=== PATIENT | female | born 1945 | race Caucasian/White ===

== ENCOUNTER 2017-06-24 12:10 | Emergency (ER) | payer MEDICARE ==
[~2017-06-24 12:10] MED LIST: ALEN1TAB48 PO; ATOR40TA16 PO; ESTR42.5V VAGINAL; PNEU13P IM; RANI150T PO
[2017-06-24 12:12] VITALS: BP 161/67; PULSE 80; RESP 18; TEMP 98; O2SAT 96
[2017-06-24] MEDS ORDERED: SODIUM CHLORIDE 0.9% FLUSH 10 ML FLUSH IVF PRN (13:15)
--- NOTE | 2017-06-24 13:21 | RADRPT ---
EXAM DATE/TIME: 06/24/2017 12:59 [facility] COMPARISON: No previous studies available for comparison. INDICATIONS : Cough and cold symptoms x3 weeks. MEDICAL HISTORY : None. SURGICAL HISTORY : None. ENCOUNTER: Initial ACUITY: 3 weeks PAIN SCORE: 0/10 LOCATION: Bilateral chest FINDINGS: PA and lateral views of the chest demonstrate minimal density in the lingula. Calcified granuloma rig ht midlung. The cardiomediastinal contours are unremarkable. Osseous structures are intact. CONCLUSION: Minimal lingular infiltrate. Bradly Ferrer MD on June 24, 2017 at 13:18 Board Certified Radiologist. This report was verified electronically.
[2017-06-24] MEDS ORDERED: LEVA750T9 PO (14:22)
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
[2017-06-24] MEDS ORDERED: LEVOFLOXACIN 750 MG TAB PO ONE (14:30)
== END 2017-06-24 15:07 | disposition home or self-care (01) ==
LOC: NEPD 12:10
DX: J18.9 Pneumonia, unspecified organism (principal); E78.00 Pure hypercholesterolemia, unspecified
CPT/HCPCS: 71020; 99285

== ENCOUNTER 2017-10-02 12:14 | Emergency (ER) | payer MEDICARE ==
[~2017-10-02] VITALS: Ht 165.1 cm; Wt 54.6 kg
[~2017-10-02 12:14] MED LIST changes: -PNEU13P IM
[2017-10-02 12:31] VITALS: BP 160/72; PULSE 76; RESP 20; TEMP 98.4; O2SAT 98
[2017-10-02] MEDS ORDERED: ASPI-183 PO (13:54)
[2017-10-02] MEDS ORDERED: SODIUM CHLORIDE 0.9% FLUSH 10 ML FLUSH IVF PRN (14:15)
[2017-10-02 14:44] LABS: AUTOMATED NEUTROPHIL # 4.2 TH/MM3 (1.8-7.7); BASOPHIL # 0.1 TH/MM3 (0-0.2); BASOPHIL % 1.6 % (0.0-2.0); EOSINOPHIL # 0.4 TH/MM3 (0-0.4); EOSINOPHIL % 6.2 % (0.0-4.0); HEMATOCRIT 40.6 % (35.0-46.0); HEMOGLOBIN 13.4 GM/DL (11.6-15.3); LYMPH % 19.4 % (9.0-44.0); LYMPHOCYTE # 1.2 TH/MM3 (1.0-4.8); MEAN CELL VOLUME 93.6 FL (80.0-100.0); MEAN CORPUSCULAR HGB CONC 33.2 % (32.0-36.0); MEAN PLATELET VOLUME 8.3 FL (7.0-11.0); MONO % 5.9 % (0.0-8.0); MONOCYTE # 0.4 TH/MM3 (0-0.9); NEUT % 66.9 % (16.0-70.0); PLATELET COUNT 201 TH/MM3 (150-450); RED BLOOD COUNT 4.33 MIL/MM3 (4.00-5.30); WHITE BLOOD COUNT 6.3 TH/MM3 (4.0-11.0)
[2017-10-02 14:45] VITALS: BP 152/70; PULSE 70; RESP 18; O2SAT 98
[2017-10-02 14:46] VITALS: RESP 18; O2SAT 98
[2017-10-02 14:47] LABS: BILIRUBIN, URINE NEG (NEG); BLOOD, URINE NEG (NEG); GLUCOSE,URINE NEG (NEG); KETONE, URINE NEG (NEG); NITRITE,URINE NEG (NEG); URINE COLOR YELLOW (YELLW/STRAW); URINE LEUKOCYTE ESTERASE NEG (NEG)
[2017-10-02 14:51] LABS: SQUAMOUS EPITHELIAL CELL URINE 0-5 /hpf (0-5)
[2017-10-02 14:55] LABS: CALCIUM 9.2 MG/DL (8.5-10.1)
[2017-10-02 14:56] LABS: BICARBONATE 29.2 MEQ/L (21.0-32.0)
[2017-10-02 14:59] LABS: CREATININE 0.77 MG/DL (0.50-1.00)
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
--- NOTE | 2017-10-02 15:26 | RADRPT ---
EXAM DATE/TIME: 10/02/2017 14:35 [facility] COMPARISON: CHEST PA & LAT, June 24, 2017, 12:59. INDICATIONS : Short of breath MEDICAL HISTORY : None. SURGICAL HISTORY : None. ENCOUNTER: Initial ACUITY: 2 days PAIN SCORE: 0/10 LOCATION: Bilateral chest FINDINGS: No new focal pleural or parenchymal opacities. Lungs are hyperexpanded with small calcified granuloma in the right midlung. Cardiomediastinal contours are within normal limits. Bony thorax is intact. CONCLUSION: 1. No acute abnormality or significant interval change. Dm Ardon MD on October 02, 2017 at 15:23 Board Certified Radiologist. This report was verified electronically.
[2017-10-02 16:28] VITALS: BP 142/72; PULSE 64; RESP 18; O2SAT 100
--- NOTE | 2017-10-02 16:43 | EKG ---
Date Performed: 10/02/2017 Time Performed: 14:21:31 PTAGE: 72 years EKG: Sinus rhythm NORMAL ECG No significant change from prior electrocardiogram. PREVIOUS TRACING : 03/06/2010 07.47 DOCTOR: Prasanth Lopez Interpretating Date/Time 10/02/2017 16:42:06
[2017-10-02 17:13] VITALS: BP 170/90
[2017-10-02 17:28] LABS: MONOSCREEN NEG (NEG)
== END 2017-10-02 17:19 | disposition home or self-care (01) ==
LOC: PHED 12:14
DX: R53.83 Other fatigue (principal); T78.40XA Allergy, unspecified, initial encounter; M19.90 Unspecified osteoarthritis, unspecified site; E78.00 Pure hypercholesterolemia, unspecified; Z85.828 Personal history of other malignant neoplasm of skin; Z88.2 Allergy status to sulfonamides; Z79.82 Long term (current) use of aspirin; Z79.899 Other long term (current) drug therapy
CPT/HCPCS: 71045; 80048; 81001; 84484; 85025; 86308; 87804; 93005; 99285

== ENCOUNTER 2018-04-06 09:37 | Observation (INO) ==
--- NOTE | 2018-04-06 10:24 | XR ---
EXAM DATE: 04/06/2018 10:18 AM EDT AGE/SEX: 72 years / Female INDICATIONS: Fatigue, and weakness. CLINICAL DATA: This is the patient's initial encounter. Patient reports that signs and symptoms have been present for 3 weeks and indicates a pain score of 0/10. MEDICAL/SURGICAL HISTORY: None. None. COMPARISON: [facility], CHEST SINGLE AP, 10/02/2017. . FINDINGS: Granuloma right midlung. Very minimal parenchymal changes left base that could be early inflammatory process. The heart and pulmonary vascularity are normal. The portion of the bony skeleton visualized is unremarkable. . CONCLUSION: Minimal parenchymal changes left base. Electronically signed by: Josiah Dobbins MD 04/06/2018 10:23 AM EDT
[2018-04-06 10:37] LABS: Baso % (Auto) 0.6 % (0.0-2.0); Eos # (Auto) 0.2 th/mm3 (0.0-0.4); Eos % (Auto) 2.7 % (0.0-4.0); Hematocrit 37.9 % (35.0-46.0); Hemoglobin 13.4 gm/dL (11.6-15.3); Lymph # (Auto) 1.1 th/mm3 (1.0-4.8); Lymph % (Auto) 18.8 % (9.0-44.0); Mean Corpuscular HGB Conc 35.3 % (32.0-36.0); Mean Corpuscular Volume 93.5 fL (80.0-100.0); Mean Platelet Volume 8.4 fL (7.0-11.0); Mono # (Auto) 0.4 th/mm3 (0.0-0.9); Mono % (Auto) 6.4 % (0.0-8.0); Neut # (Auto) 4.3 th/mm3 (1.8-7.7); Neut % (Auto) 71.5 % (16.0-70.0); Platelet Count 192 th/mm3 (150-450); Red Blood Count 4.06 mil/mm3 (4.00-5.30); Red Cell Distribution Width 12.2 % (11.6-17.2); White Blood Count 5.9 th/mm3 (4.0-11.0)
--- NOTE | 2018-04-06 10:48 | CT ---
EXAM DATE: 04/06/2018 10:41 AM EDT AGE/SEX: 72 years / Female INDICATIONS: Altered mental status, general weakness and facial numbness today. CLINICAL DATA: This is the patient's initial encounter. Patient reports that signs and symptoms have been present for 1 day and indicates a pain score of 0/10. MEDICAL/SURGICAL HISTORY: None. Tonsillectomy. RADIATION DOSE: 56.35 CTDI (mGy) COMPARISON: [facility] [place], CT BRAIN W/O CONTRAST, 03/10/2015. . TECHNIQUE: CT of the head without contrast. Using automated exposure control and adjustment of the mA and/or kV according to patient size, radiation dose was kept as low as reasonably achievable to ob tain optimal diagnostic quality images. DICOM format image data is available electronically for revi ew and comparison. FINDINGS: Cerebrum: The ventricles are normal for age. No evidence of midline shift, mass lesion, hemorrhage or acute infarction. No extraaxial fluid collections are seen. Posterior Fossa: The cerebellum and brainstem are intact. The 4th ventricle is midline. The cerebe llopontine angle is unremarkable. Extracranial: The visualized portion of the orbits is intact. Skull: The calvaria is intact. No evidence of skull fracture. CONCLUSION: 1. Negative for acute process . Electronically signed by: Josiah Dobbins MD 04/06/2018 10:47 AM EDT
[2018-04-06 11:12] LABS: Alkaline Phosphatase 116 U/L (45-117); Total Protein 7.4 g/dL (6.4-8.2)
[2018-04-06 11:21] LABS: Alanine Aminotransferase 36 U/L (10-53); Albumin 3.9 g/dL (3.4-5.0); Anion Gap 0 meq/L (5-15); Aspartate Aminotransferase 36 U/L (15-37); Blood Urea Nitrogen 18 mg/dL (7-18); Calcium 8.7 mg/dL (8.5-10.1); Carbon Dioxide 30.7 meq/L (21.0-32.0); Chloride 104 meq/L (98-107); Glomerular Filtration Rate 60 mL/min (>89); Glucose,Random 132 mg/dL (74-106); Potassium 4.2 meq/L (3.5-5.1); Sodium 135 meq/L (136-145)
--- NOTE | 2018-04-06 14:15 | P.HPFP ---
History of Present Illness Primary Care Physician: Major Murillo MD, R3 Chief Complaint: numbness and tingling History of Present Illness: 72 year old female PMH chronic fatigue, osteoporosis, hiatal hernia, HLD who presented with chest tightness, resolved numbness/tingling of face and difficulty with speech. 2 weeks she has been having increasing fatigue and some chest tightness. It has been worse the last 3-4 days. The chest tightness is at rest but is worse when she is doing activity. It is not associated with eating. She denies any diaphoresis. She said when she woke up this morning to get ready for adventist she had numbness and tingling that was in her neck and radiated to her face. When she was in the shower she had difficulty remembering if she washed her face or not and when she got out of the shower clinic remember her usual bathroom routine. She had water in a smoothie this morning and her appetite has been normal throughout the past couple weeks. She said her legs felt weak. She decided to come to the emergency room. In the emergency room she felt like she had difficulty finding the correct words when she was asked about her medical history. She says that she has been feeling like she is in a fog and lightheaded. She has had increased urination but that has been a chronic issue for years dealing with her back discs. She has had some nausea and shortness of breath with activity. She denied headache, vision change, dizziness, painful urination. She lives in an apartment by herself at [facility] independent living facility. She sees a concierge who has her do a carotid Doppler alternating with a cardiac echo every 6 months. She has been told she has leaky valves. Her concierge is Dr. Ochoa. She was seen in the past week by her PCP Dr. Murillo who did not find anything abnormal. - Diagnosis (1) Chest pain (2) Numbness and tingling (3) Hiatal hernia (4) HLD (hyperlipidemia) (5) Osteoporosis (6) Nutrition, metabolism, and development symptoms Review of Systems Constitutional: Reports fatigue, Reports weakness, Denies chills, Denies fever(s ) Eyes: Denies change in vision Cardiovascular: Reports chest pain, Reports chest pain at rest, Reports chest pain with activity, Reports shortness of breath with activity, Denies rapid, pounding, or irregular heartbeat Respiratory: Reports shortness of breath with activity, Denies cough Gastrointestinal: Reports nausea, Denies constipation, Denies loose stools, Denies vomiting Genitourinary: Reports urinary urgency, Denies painful urination Musculoskeletal: Reports muscle weakness, Reports numbness, Reports tingling Skin/Breast: Denies rash Neurologic: Reports confusion, Reports numbness, Reports tingling, Reports weakness, Denies headache(s) Endocrine: Denies excessive sweating PMFSH - History History Provided By: Patient - Medical History Medical History: Medical History (Last Updated 04/06/18 @ 15:28 by Eryn Sloan MD, R1) Chronic fatigue Hiatal hernia Hyperlipemia Tibia fracture - Surgical History Surgical History: Surgical History (Last Updated 04/06/18 @ 15:28 by Eryn Sloan MD, R1) H/O total hysterectomy Hx of cholecystectomy Hx of tonsillectomy - Family History Family History: Family History (Last Updated 04/06/18 @ 15:30 by Eryn Sloan MD, R1) Mother Cardiovascular disease Father Heart attack - Tobacco History Smoking Status: Never smoker - Alcohol History How Often Do You Have a Drink Containing Alcohol: Never - Substance Use History Substance History: No History of Abuse - Travel History Recent Travel in the [place] Within the Last 8 Weeks: No Recent Travel Out of the Country Within the Last 8 Weeks: No - Immunization History Tetanus Immunization: >5 Years Hx Influenza Vaccine This Season: No Medications and Allergies Active Medications: Active Medications Sodium Chloride (Ns Flush) 2 ml IV.FLUSH UNSCH PRN PRN Reason: FLUSH AFTER USING IV ACCESS Allergies Allergy/AdvReac Type Severity Reaction Status Date / Time Sulfa (Sulfonamide Allergy Severe Unverified 10/02/17 12:32 Antibiotics) Home Medications Medication Instructions Recorded Confirmed Type alendronate 70 mg PO QWEEK 04/06/18 04/06/18 History aspirin 325 mg PO DAILY 04/06/18 04/06/18 History atorvastatin 20 mg PO DAILY 04/06/18 04/06/18 History estradiol [Estrace] 1 g VAGINAL 3XW 04/06/18 04/06/18 History Exam Vital signs: Vital Signs 04/06/18 09:42 04/06/18 10:02 04/06/18 10:03 Temperature 97.9 F Pulse Rate 81 77 81 Respiratory Rate 23 18 Blood Pressure 154/89 H 183/95 H Pulse Oximetry 97 100 100 04/06/18 12:37 Temperature Pulse Rate 76 Respiratory Rate 18 Blood Pressure 148/71 H Pulse Oximetry 99 Intake & Output 04/05/18 04/06/18 04/06/18 18:59 06:59 18:59 Weight 53.524 kg Narrative: GENERAL: SKIN: Warm and dry. HEAD: Atraumatic. Normocephalic. EYES: Pupils equal and round. No scleral icterus. No injection or drainage. ENT: No nasal bleeding or discharge. Mucous membranes pink and moist. NECK: Trachea midline. No JVD. CARDIOVASCULAR: Regular rate and rhythm. No murmurs. No carotid bruits RESPIRATORY: No accessory muscle use. Clear to auscultation. Breath sounds equal bilaterally. GASTROINTESTINAL: Abdomen soft, some epigastric tenderness, nondistended. Hepatic and splenic margins not palpable. MUSCULOSKELETAL: Extremities without clubbing, cyanosis, or edema. No obvious deformities. Some tenderness to palpation of sternum. NO CVA tenderness NEUROLOGICAL: Awake and alert. No obvious cranial nerve deficits. Motor grossly within normal limits. Five out of 5 muscle strength in the arms and legs. Normal speech. CN 2-12 intact. Cerebellar finger to nose wnL. PSYCHIATRIC: Appropriate mood and affect; insight and judgment normal. Results - Labs Result diagrams: 04/06/18 10:05 04/06/18 10:05 Abnormal lab results 04/06/18 04/06/18 Range/Units 10:05 10:05 Neut % (Auto) 71.5 H (16.0-70.0) % Sodium 135 L (136-145) meq/L Anion Gap 0 L (5-15) meq/L Estimated GFR 60 L (>89) mL/min Random Glucose 132 H (74-106) mg/dL Troponin I Less than 0.02 L (0.02-0.05) ng/mL Short CBC 04/06/18 Range/Units 10:05 WBC 5.9 (4.0-11.0) th/mm3 Hgb 13.4 (11.6-15.3) gm/dL Hct 37.9 (35.0-46.0) % Plt Count 192 (150-450) th/mm3 BMP 04/06/18 10:05 Sodium 135 L Potassium 4.2 Chloride 104 Carbon Dioxide 30.7 BUN 18 Creatinine 0.92 Calcium 8.7 Cardiac Enzymes 04/06/18 Range/Units 10:05 Troponin I Less than 0.02 L (0.02-0.05) ng/mL Liver Function 04/06/18 Range/Units 10:05 Total Bilirubin 0.5 (0.2-1.0) mg/dL AST 36 (15-37) U/L ALT 36 (10-53) U/L Alkaline Phosphatase 116 (45-117) U/L Albumin 3.9 (3.4-5.0) g/dL - Imaging Impressions Chest X-Ray 04/06/18 10:00 CONCLUSION: Minimal parenchymal changes left base. Head CT 04/06/18 10:00 CONCLUSION: 1. Negative for acute process . Caprini VTE Risk Assessment Caprini VTE Risk Assessment: Moderate/High Risk (score >= 2) Caprini Risk Assessment Model: Point Value = 1 Point Value = 2 Point Value = 3 Point Value = 5 Age 41-60 Minor surgery BMI > 25 kg/m2 Swollen legs Varicose veins or History of unexplained or recurrent spontaneous Oral contraceptives or hormone replacement Sepsis (< 1 month) Serious lung disease, including pneumonia (< 1 month) Abnormal pulmonary function Acute myocardial infarction Congestive heart failure (< 1 month) History of inflammatory bowel disease Medical patient at bed rest Age 61-74 Arthroscopic surgery Major open surgery (> 45 min) Laparoscopic surgery (> 45 min) Malignancy Confined to bed (> 72 hours) Immobilizing plaster cast Central venous access Age >= 75 History of VTE Family history of VTE Factor V Leiden Prothrombin [id number] Lupus anticoagulant Anticardiolipin antibodies Elevated serum homocysteine Heparin-induced thrombocytopenia Other congenital or acquired thrombophilia Stroke (< 1 month) Elective arthroplasty Hip, pelvis, or leg fracture Acute spinal cord injury (< 1 month) Prophylaxis Regimen: Total Risk Factor Score Risk Level Prophylaxis Regimen 0-1 Low Early ambulation 2 Moderate Order ONE of the following: *Sequential Compression Device (SCD) *Heparin 5000 units SQ BID 3-4 Higher Order ONE of the following medications: *Heparin 5000 units SQ TID *Enoxaparin/Lovenox 40 mg SQ daily (WT < 150 kg, CrCl > 30 mL/min) *Enoxaparin/Lovenox 30 mg SQ daily (WT < 150 kg, CrCl > 10-29 mL/min) *Enoxaparin/Lovenox 30 mg SQ BID (WT < 150 kg, CrCl > 30 mL/min) AND/OR *Sequential Compression Device (SCD) 5 or more Highest Order ONE of the following medications: *Heparin 5000 units SQ TID (Preferred with Epidurals) *Enoxaparin/Lovenox 40 mg SQ daily (WT < 150 kg, CrCl > 30 mL/min) *Enoxaparin/Lovenox 30 mg SQ daily (WT < 150 kg, CrCl > 10-29 mL/min) *Enoxaparin/Lovenox 30 mg SQ BID (WT < 150 kg, CrCl > 30 mL/min) AND *Sequential Compression Device (SCD) Assessment and Plan - Assessment (1) Chest pain Code(s): R07.9 - Chest pain, unspecified Status: Acute Plan: Troponin X2 <0.02. Chest X-ray: Minimal parenchymal changes left base. Sinus rhythm with sinus arrhythmia no ST elevation. No significant change to EKG in September 2017. Ddx costochondritis, ACS, GERD. given PE tender to palpation of sternum and epigastric region and chronic history of the chest tightness, less likely ACS. -Admit to observation -Trend troponin and EKG -Cardiac telemetry (2) Numbness and tingling Code(s): R20.0 - Anesthesia of skin; R20.2 - Paresthesia of skin Status: Acute Plan: Ddx stroke, TIA, electrolyte/metabolic. Currently resolved. CT showed no acute changes. BMP and CBC within normal limits. Troponin X2 <0.02. Chest X-ray: Minimal parenchymal changes left base.Sinus rhythm with sinus arrhythmia no ST elevation. No significant change to EKG in September 2017. -trend troponin and EKG -cardiac telemetry -Carotid Doppler -Cardiac echo -Bedside swallow before diet -UA -PT/OT -MRI/MRA head -A1c -Home ASA 325 (3) Hiatal hernia Code(s): K44.9 - Diaphragmatic hernia without obstruction or gangrene Status: Acute (4) HLD (hyperlipidemia) Code(s): E78.5 - Hyperlipidemia, unspecified Status: Acute Plan: -home atorvastatin 20mg -lipid profile (5) Osteoporosis Code(s): M81.0 - Age-related osteoporosis without current pathological fracture Status: Acute Plan: On alendronate but doing intermittent therapy and not scheduled to restart until July. (6) Nutrition, metabolism, and development symptoms Code(s): R63.8 - Other symptoms and signs concerning food and fluid intake Status: Acute Plan: Diet: regular once passes swallow study Electrolytes: Replete as needed DVT Prophylaxis:Lovenox - Assessment and Plan 72 year old female PMH chronic fatigue, osteoporosis, hiatal hernia, HLD who presented with chest tightness, resolved numbness/tingling of face and difficulty with speech. CT showed no acute changes. BMP and CBC within normal limits. Troponin X2 <0.02. Chest X-ray: Minimal parenchymal changes left base.Sinus rhythm with sinus arrhythmia no ST elevation. No significant change to EKG in September 2017. BP on admission 149/71 and heart rate 76. Neurological physical exam no deficits and overall exam normal besides some sternal and epigastric tenderness. Ddx of chest tightness costochondritis, ACS, GERD. given PE tender to palpation of sternum and epigastric region and chronic history of the chest tightness, less likely ACS. Ddx stroke, TIA, electrolyte/metabolic. Ordered Echo, carotid doppler, MRI/MRA head, UA, PT/OT as well as trending troponin, EKG, and Cardiac Telemetry. Code: DNR Discharge disposition: unknown Discharge: Home
--- NOTE | 2018-04-06 14:21 | ED ---
HPI General Chief complaint: Neuro Symptoms/Deficit Stated complaint: Medical Time Seen by Provider: 04/06/18 10:00 History of Present Illness HPI narrative: Patient is a 72-year-old female presents emergency department for evaluation of 2 weeks worth of chest tightness, about 8:00 this morning the patient had sudden onset of some confusion and difficulty finding words as well as some left-sided facial numbness. Patient states is not happened to her before. States he has a history of coronary artery disease and stenosis in her neck. She states is been many years since she has had a cardiac catheterization circa 2004. She has not had a stress test since then. She is quite concerned that something significant is happened to her. Currently her symptoms are fairly mild, patient numbness is resolving, she is not having any difficulty with speech currently. Related Data Home Medications Medication Instructions Recorded Confirmed alendronate 70 mg PO QWEEK 04/06/18 04/06/18 aspirin 325 mg PO DAILY 04/06/18 04/06/18 atorvastatin 20 mg PO DAILY 04/06/18 04/06/18 estradiol [Estrace] 1 g VAGINAL 3XW 04/06/18 04/06/18 lisinopril 5 mg PO DAILY 04/06/18 04/06/18 omeprazole 20 mg PO DAILY 04/06/18 04/06/18 Allergies Allergy/AdvReac Type Severity Reaction Status Date / Time Sulfa (Sulfonamide Allergy Severe Unverified 10/02/17 12:32 Antibiotics) Review of Systems ROS: all other systems reviewed are negative [facility] Medical History Medical History Hiatal hernia (Acute) Hyperlipemia (Acute) Tibia fracture (Acute) Surgical History Surgical History Hx of cholecystectomy (Acute) Hx of tonsillectomy (Acute) Social History Social History Substance History: No History of Abuse Smoking Status: Never smoker How Often Do You Have a Drink Containing Alcohol: Never Recent Travel in [facility] within the Last 8 Weeks: No Recent Out of Country Travel within the Last 8 Weeks: No Immunization History Tetanus Immunization: >5 Years Hx Influenza Vaccine This Season: No Exam Narrative Exam Narrative: GENERAL: Well-developed well-nourished in no obvious distress however somewhat anxious. SKIN: Focused skin assessment warm/dry. HEAD: Atraumatic. Normocephalic. EYES: Pupils equal and round. No scleral icterus. No injection or drainage. ENT: No nasal bleeding or discharge. Mucous membranes pink and moist. NECK: Trachea midline. No JVD. CARDIOVASCULAR: Regular rate and rhythm. No murmur appreciated. 2+ [place] pulses in all 4 extremity's, no murmurs gallops or rubs, no carotid bruits. RESPIRATORY: No accessory muscle use. Clear to auscultation. Breath sounds equal bilaterally. GASTROINTESTINAL: Abdomen soft, non-tender, nondistended. Hepatic and splenic margins not palpable. MUSCULOSKELETAL: No obvious deformities. No clubbing. No cyanosis. No edema. NEUROLOGICAL: Awake and alert and oriented, cranial nerves II through XII grossly intact and nonfocal, 5 out of 5 strength in all 4 extremities, cerebellar testing negative, normal speech. PSYCHIATRIC: Appropriate mood and affect; insight and judgment normal. Course Initial Documented Vital Signs Temperature 97.9 F 04/06/18 09:42 Pulse Rate 81 04/06/18 09:42 Respiratory Rate 23 04/06/18 09:42 Blood Pressure 154/89 H 04/06/18 09:42 Pulse Oximetry 97 04/06/18 09:42 Last Documented Vital Signs Temperature 97.9 F 04/06/18 09:42 Pulse Rate 76 04/06/18 12:37 Respiratory Rate 18 04/06/18 12:37 Blood Pressure 148/71 H 04/06/18 12:37 Pulse Oximetry 99 04/06/18 12:37 Medical Decision Making MDM Narrative Medical decision making narrative: Patient room to the emergency department, EKG negative, chest x-ray negative, CT head negative, troponin negative as well. Patient is neurologically nonfocal currently. She is fairly vague as to isolate the symptoms as cardiac or neurologic in origin. 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 I have agreed for observation. Medical Screen Exam Complete: Yes Emergency Medical Condition: Yes Differential Diagnosis Differential Diagnosis: ACS, CA, anxiety, reflux, esophageal spasm, TIA possible. Lab Data Result diagrams: 04/06/18 10:05 04/06/18 10:05 Lab Results 04/06/18 04/06/18 Range/Units 10:05 10:05 WBC 5.9 (4.0-11.0) th/mm3 RBC 4.06 (4.00-5.30) mil/mm3 Hgb 13.4 (11.6-15.3) gm/dL Hct 37.9 (35.0-46.0) % MCV 93.5 (80.0-100.0) fL MCH 33.0 (27.0-34.0) pg MCHC 35.3 (32.0-36.0) % RDW 12.2 (11.6-17.2) % Plt Count 192 (150-450) th/mm3 MPV 8.4 (7.0-11.0) fL Neut % (Auto) 71.5 H (16.0-70.0) % Lymph % (Auto) 18.8 (9.0-44.0) % [place] % (Auto) 6.4 (0.0-8.0) % Eos % (Auto) 2.7 (0.0-4.0) % Baso % (Auto) 0.6 (0.0-2.0) % Neut # (Auto) 4.3 (1.8-7.7) th/mm3 Lymph # (Auto) 1.1 (1.0-4.8) th/mm3 [place] # (Auto) 0.4 (0.0-0.9) th/mm3 Eos # (Auto) 0.2 (0.0-0.4) th/mm3 Baso # (Auto) 0.0 (0.0-0.2) th/mm3 WBC Differential . Differential Comment Auto diff final Sodium 135 L (136-145) meq/L Potassium 4.2 (3.5-5.1) meq/L Chloride 104 (98-107) meq/L Carbon Dioxide 30.7 (21.0-32.0) meq/L Anion Gap 0 L (5-15) meq/L BUN 18 (7-18) mg/dL Creatinine 0.92 (0.50-1.00) mg/dL Estimated GFR 60 L (>89) mL/min Random Glucose 132 H (74-106) mg/dL Calcium 8.7 (8.5-10.1) mg/dL Total Bilirubin 0.5 (0.2-1.0) mg/dL AST 36 (15-37) U/L ALT 36 (10-53) U/L Alkaline Phosphatase 116 (45-117) U/L Troponin I Less than 0.02 L (0.02-0.05) ng/mL Total Protein 7.4 (6.4-8.2) g/dL Albumin 3.9 (3.4-5.0) g/dL Imaging Data Radiologist's impression: Chest X-Ray 04/06/18 10:00 CONCLUSION: Minimal parenchymal changes left base. Head CT 04/06/18 10:00 CONCLUSION: 1. Negative for acute process . Discharge Plan Physicians Team ED Provider: Benjamín Villalba Primary Care Provider: Major Murillo Rxs /Orders / Referrals /Forms Prescriptions: No Action atorvastatin 20 mg Tablet 20 mg PO DAILY RF: 0 aspirin 325 mg Tablet 325 mg PO DAILY RF: 0 alendronate 70 mg Tablet 70 mg PO QWEEK RF: 0 lisinopril 5 mg Tablet 5 mg PO DAILY RF: 0 estradiol [Estrace] 0.01 % (0.1 mg/gram) Cream 1 g VAGINAL 3XW RF: 0 omeprazole 20 mg Tablet,Delayed Release (Dr/Ec) 20 mg PO DAILY RF: 0 Discharge Interventions Interventions: Vital Signs Last Done: 04/06/18 10:02 Status ED Status: Admitted Observation Patient
[2018-04-06] MEDS ORDERED: Enoxaparin Inj 40 MG/0.4 ML Syringe SQ SCH (15:00)
[2018-04-06 16:43] LABS: Bacteria,Urine Occasional /hpf; Bilirubin,Urine Negative (Negative); Clarity,Urine Hazy (Clear); Color,Urine Straw (Yellw/Straw); Glucose,Urine (UA) Negative (Negative); Leukocyte Esterase,Urine Negative (Negative); Nitrite,Urine Negative (Negative); Specific Gravity,Urine 1.003 (1.002-1.035); Squamous Epithelial Cell,Urine 2 /hpf (0-5)
--- NOTE | 2018-04-06 17:01 | US ---
EXAM DATE: 04/06/2018 4:55 PM EDT AGE/SEX: 72 years / Female INDICATIONS: Transient ischemic attack. CLINICAL DATA: This is the patient's initial encounter. Patient reports that signs and symptoms have been present for 1 day and indicates a pain score of 0/10. MEDICAL/SURGICAL HISTORY: Hiatal hernia. Hyperlipidemia. Tibia fracture. Chronic fatigue. Tons illectomy. Cholecystectomy. Hysterectomy. COMPARISON: No prior exams available for comparison. VELOCITY PARAMETERS: ICA/CCA Ratio: Right 1.3 , Left 1.3 ICA: Right 78 cm/sec, Left 77 cm/sec CCA: Right 61 cm/sec, Left 57 cm/sec ECA: Right 49 cm/sec, Left 101 cm/sec Vertebral: Right 50 cm/sec antegrade, Left 52 cm/sec antegrade FINDINGS: Antegrade flow is seen in both vertebral arteries. There is mild atherosclerotic plaquing at the origin of both ICAs without any significant stenosis. Elevated flow velocities and ICA/CCA ratios have been found to correlate with increased degrees of vessel stenosis, calculated as percentage of diameter relative to a normal segment of distal ICA. CONCLUSION: No evidence for hemodynamically significant stenosis. Electronically signed by: Tevin Montelongo MD 04/06/2018 5:00 PM EDT
--- NOTE | 2018-04-06 17:02 | MR ---
EXAM DATE: 04/06/2018 4:59 PM EDT AGE/SEX: 72 years / Female INDICATIONS: Confusion. CLINICAL DATA: This is the patient's initial encounter. Patient reports that signs and symptoms have been present for 1 day and indicates a pain score of 0/10. MEDICAL/SURGICAL HISTORY: Arthritis. Hiatal hernia. Appendectomy. Hysterectomy. Cholecystect [place]. Tonsillectomy, right total knee replacement. [place] [facility] [place]. . TECHNIQUE: Multiplanar, multisequence examination of the brain was performed without contrast. FINDINGS: There is no evidence for acute infarction on diffusion-weighted images. No hemorrhage is seen. Ventri cles and cisterns are of normal size and configuration. There is mild increased signal in the chip, a nd periventricular white matter on axial flair images. This is nonspecific though most likely related to pleural chronic microvascular ischemic disease. No masses are seen. CONCLUSION: 1. Mild white matter disease is noted. 2. No acute findings. Electronically signed by: Jayden Jaquez MD 04/06/2018 5:01 PM EDT
--- NOTE | 2018-04-06 17:02 | MR ---
EXAM DATE: 04/06/2018 4:57 PM EDT AGE/SEX: 72 years / Female INDICATIONS: Confusion. CLINICAL DATA: This is the patient's initial encounter. Patient reports that signs and symptoms have been present for 1 day and indicates a pain score of 0/10. MEDICAL/SURGICAL HISTORY: Hiatal hernia. Arthritis. Appendectomy. Cholecystectomy. Hysterect [place]. Tonsillectomy, right total knee replacement. [place] [facility] [place] [facility] [place]. . TECHNIQUE: 3D [id number] MRA was performed. Source images, multiplanar STS MIP, and 3D volum e MIP reconstructions were reviewed. FINDINGS: There is excellent visualization of the major intracranial arteries out to the second-order branch ve ssels. There is no evidence for vessel truncation or stenosis, and no evidence for vascular malforma tion. origin right posterior cerebral artery is noted. There is a left para ophthalmic artery a neurysm identified directed cephalad measuring 2.2 mm in cephalocaudal dimension. CONCLUSION: 1. 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 Electronically signed by: Jayden Jaquez MD 04/06/2018 5:00 PM EDT
[2018-04-07 06:47] LABS: Baso % (Auto) 0.9 % (0.0-2.0); Eos # (Auto) 0.4 th/mm3 (0.0-0.4); Eos % (Auto) 7.7 % (0.0-4.0); Hematocrit 37.1 % (35.0-46.0); Hemoglobin 12.9 gm/dL (11.6-15.3); Lymph # (Auto) 1.7 th/mm3 (1.0-4.8); Mean Corpuscular HGB Conc 34.7 % (32.0-36.0); Mean Corpuscular Hemoglobin 32.6 pg (27.0-34.0); Mean Corpuscular Volume 93.8 fL (80.0-100.0); Mean Platelet Volume 8.5 fL (7.0-11.0); Mono # (Auto) 0.6 th/mm3 (0.0-0.9); Mono % (Auto) 11.1 % (0.0-8.0); Neut # (Auto) 2.4 th/mm3 (1.8-7.7); Neut % (Auto) 47.3 % (16.0-70.0); Platelet Count 178 th/mm3 (150-450); Red Blood Count 3.96 mil/mm3 (4.00-5.30); Red Cell Distribution Width 12.3 % (11.6-17.2); White Blood Count 5.1 th/mm3 (4.0-11.0)
[2018-04-07 07:38] LABS: Calcium 8.3 mg/dL (8.5-10.1); Carbon Dioxide 30.3 meq/L (21.0-32.0); Potassium 4.1 meq/L (3.5-5.1)
[2018-04-07 07:40] LABS: Chol/HDL Ratio 2.19 Ratio; HDL Cholesterol 57.3 mg/dL (40.0-60.0)
[2018-04-07] MEDS ORDERED: Aspirin 325 MG Tablet PO SCH (09:00)
--- NOTE | 2018-04-07 10:29 | P.PNFP ---
Subjective Interval history: This is a 72-year-old female, patient of Dr. Murillo, who presented to the emergency department with a sensation of some weakness, episodes of forgetfulness, being in the middle of her routine and losing her place. 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 She has worn a Holter monitor at least twice. She has not been on any other anticoagulants other than aspirin. She was on alendronate from July to December, she is on a 6 month holiday from this. She was switched from omeprazole to ranitidine which seems to manage her GI symptoms. She does take a statin and has significant concerns about this affecting her mentation. She is worried that some of her forgetfulness is a sign of dementia. Please see history and physical examination for this admission for additional historical details, including past, family, social history and review of systems at the time of admission. This morning, she has had her echocardiogram, she is not experiencing any of the sensation of losing her place or tachycardia or flutters. She feels a little bit weaker than her baseline however. She has been up and out of bed and ambulating without difficulty. No chest pain or shortness of breath. Has been seen by physical therapy and was given some exercises to do which she intends to undertake. Results - Labs Result diagrams: 04/07/18 05:50 04/07/18 05:50 Abnormal lab results 04/06/18 04/06/18 04/06/18 Range/Units 10:05 10:05 14:12 RBC (4.00-5.30) mil/mm3 Neut % (Auto) 71.5 H (16.0-70.0) % Pratt % (Auto) (0.0-8.0) % Eos % (Auto) (0.0-4.0) % Sodium 135 L (136-145) meq/L Anion Gap 0 L (5-15) meq/L Estimated GFR 60 L (>89) mL/min Random Glucose 132 H (74-106) mg/dL Calcium (8.5-10.1) mg/dL Troponin I Less than 0.02 L Less than 0.02 L (0.02-0.05) ng/mL Urine Clarity (Clear) Urine Bacteria (None) /hpf 04/06/18 04/06/18 04/07/18 Range/Units 16:25 19:03 05:50 RBC 3.96 L (4.00-5.30) mil/mm3 Neut % (Auto) (16.0-70.0) % Pratt % (Auto) 11.1 H (0.0-8.0) % Eos % (Auto) 7.7 H (0.0-4.0) % Sodium (136-145) meq/L Anion Gap (5-15) meq/L Estimated GFR (>89) mL/min Random Glucose (74-106) mg/dL Calcium (8.5-10.1) mg/dL Troponin I Less than 0.02 L (0.02-0.05) ng/mL Urine Clarity Hazy H (Clear) Urine Bacteria Occasional H (None) /hpf 04/07/18 Range/Units 05:50 RBC (4.00-5.30) mil/mm3 Neut % (Auto) (16.0-70.0) % Pratt % (Auto) (0.0-8.0) % Eos % (Auto) (0.0-4.0) % Sodium (136-145) meq/L Anion Gap (5-15) meq/L Estimated GFR 72 L (>89) mL/min Random Glucose (74-106) mg/dL Calcium 8.3 L (8.5-10.1) mg/dL Troponin I (0.02-0.05) ng/mL Urine Clarity (Clear) Urine Bacteria (None) /hpf Short CBC 04/06/18 04/07/18 Range/Units 10:05 05:50 WBC 5.9 5.1 (4.0-11.0) th/mm3 Hgb 13.4 12.9 (11.6-15.3) gm/dL Hct 37.9 37.1 (35.0-46.0) % Plt Count 192 178 (150-450) th/mm3 BMP 04/06/18 04/07/18 10:05 05:50 Sodium 135 L 143 Potassium 4.2 4.1 Chloride 104 105 Carbon Dioxide 30.7 30.3 BUN Creatinine 0.92 0.78 Calcium 8.7 8.3 L Cardiac Enzymes 04/06/18 04/06/18 04/06/18 Range/Units 10:05 14:12 19:03 Troponin I Less than 0.02 L Less than 0.02 L Less than 0.02 L (0.02-0.05) ng/mL Liver Function 04/06/18 Range/Units 10:05 Total Bilirubin 0.5 (0.2-1.0) mg/dL AST 36 (15-37) U/L ALT 36 (10-53) U/L Alkaline Phosphatase 116 (45-117) U/L Albumin 3.9 (3.4-5.0) g/dL Urine 04/06/18 Range/Units 16:25 Urine Color Straw (Yellw/Straw) Urine Clarity Hazy H (Clear) Urine pH 6.0 (5.0-8.5) Ur Specific [place] 1.003 (1.002-1.035) Urine Protein Negative (Neg-Trace) mg/dL Urine Glucose (UA) Negative (Negative) mg/dL - Imaging Impressions Carotid Doppler Study 04/06/18 00:00 CONCLUSION: No evidence for hemodynamically significant stenosis. Head MRI 04/06/18 00:00 CONCLUSION: 1. Mild white matter disease is noted. 2. No acute findings. Head MRA 04/06/18 00:00 CONCLUSION: 1. 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 Chest X-Ray 04/06/18 10:00 CONCLUSION: Minimal parenchymal changes left base. Head CT 04/06/18 10:00 CONCLUSION: 1. Negative for acute process . Physical Exam Vital signs: Vital Signs 04/06/18 12:37 04/06/18 16:24 04/06/18 17:31 Temperature 97.8 F Pulse Rate 76 70 65 Respiratory Rate 18 18 16 Blood Pressure 148/71 H 135/71 166/74 H Pulse Oximetry 99 97 04/06/18 20:00 04/07/18 00:00 04/07/18 02:00 Temperature 98.2 F 98.0 F 97.7 F Pulse Rate 72 62 72 Respiratory Rate 16 16 17 Blood Pressure 138/65 143/72 H 111/65 Pulse Oximetry 95 97 97 04/07/18 04:33 04/07/18 08:27 Temperature 98.0 F Pulse Rate 73 Respiratory Rate 16 Blood Pressure 119/72 Pulse Oximetry 99 100 Intake & Output 04/06/18 04/07/18 04/07/18 18:59 06:59 18:59 Weight 53.524 kg Other: # Voids 2 Date of Last Bowel Movement 04/06/18 - Additional findings Additional findings: GENERAL: Well-nourished, well-developed patient. Pleasant. No acute distress. SKIN: Warm and dry. No rashes present. HEAD: Normocephalic, atraumatic. EYES: No scleral icterus. No injection or drainage. Extraocular movements intact. Conjunctivae pink. CARDIAC: Normal rate and regular rhythm, normal S1/S2, no murmur, rub or gallop. RESPIRATORY: CTAB, no crackles or wheezes. No accessory muscle use. GASTROINTESTINAL: Abdomen nondistended. MUSCULOSKELETAL: No cyanosis or edema. NEURO: Cranial nerves II through XII grossly intact. No obvious focal neurologic deficits. Moves all extremities well. Normal gait. PSYCH: Normal mood and affect. Good eye contact. Good insight and judgment. Normal speech. Assessment and Plan - Assessment (1) Chest pain Code(s): R07.9 - Chest pain, unspecified Status: Resolved Plan: Troponin X2 <0.02. Chest X-ray: Minimal parenchymal changes left base. Sinus rhythm with sinus arrhythmia no ST elevation. No significant change to EKG in September 2017. Ddx costochondritis, ACS, GERD. given PE tender to palpation of sternum and epigastric region and chronic history of the chest tightness, less likely ACS. -Admit to observation -Trend troponin and EKG -Cardiac telemetry (2) Numbness and tingling Code(s): R20.0 - Anesthesia of skin; R20.2 - Paresthesia of skin Status: Resolved Plan: Ddx stroke, TIA, electrolyte/metabolic. Currently resolved. CT showed no acute changes. BMP and CBC within normal limits. Troponin X2 <0.02. Chest X-ray: Minimal parenchymal changes left base.Sinus rhythm with sinus arrhythmia no ST elevation. No significant change to EKG in September 2017. -trend troponin and EKG -cardiac telemetry -Carotid Doppler -Cardiac echo -Bedside swallow before diet -UA -PT/OT -MRI/MRA head -A1c -Home ASA 325 (3) Hiatal hernia Code(s): K44.9 - Diaphragmatic hernia without obstruction or gangrene Status: Chronic (4) HLD (hyperlipidemia) Code(s): E78.5 - Hyperlipidemia, unspecified Status: Chronic Plan: -home atorvastatin 20mg -lipid profile (5) Osteoporosis Code(s): M81.0 - Age-related osteoporosis without current pathological fracture Status: Chronic Plan: On alendronate but doing intermittent therapy and not scheduled to restart until July. (6) Nutrition, metabolism, and development symptoms Code(s): R63.8 - Other symptoms and signs concerning food and fluid intake Status: Acute Plan: Diet: regular Electrolytes: Replete as needed DVT Prophylaxis:Lovenox - Assessment and Plan 72 year old female PMH chronic fatigue, osteoporosis, hiatal hernia, HLD who presented with chest tightness, resolved numbness/tingling of face and difficulty with speech. CT showed no acute changes. BMP and CBC within normal limits. Troponin X2 <0.02. Chest X-ray: Minimal parenchymal changes left base.Sinus rhythm with sinus arrhythmia no ST elevation. No significant change to EKG in September 2017. BP on admission 149/71 and heart rate 76. Neurological physical exam no deficits and overall exam normal besides some sternal and epigastric tenderness which has since resolved. Ddx stroke, TIA, electrolyte/ metabolic. Ordered Echo, carotid doppler, MRI/MRA head, UA, PT/OT as well as trending troponin, EKG, and Cardiac Telemetry. 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 - Attending Attestation Patient seen, examined and discussed with the medicine team. I agree with the plan. See orders.
[2018-04-07 12:12] VITALS: BP 110/59; PULSE 74; RESP 18; TEMP 98.4; O2SAT 98
--- NOTE | 2018-04-07 12:33 | ECHRPT ---
Indication: CVA / TIA CONCLUSIONS The left ventricular systolic function is normal with an estimated ejection fraction in the range of 55-60%. Normal LV size and wall thickness. Mildly dilated proximal ascending aorta. No significant Valvular Abnormalities. The estimated pulmonary arterial pressure is 35 mmHg. Compared to report from the prior echo 11/2003, there is no significant change. BP: / HR: Rhythm: MEASUREMENTS (Male / Female) Normal Values Technical Quality:Fair 2D ECHO LV Diastolic Diameter PLAX 3.1 cm 4.2 - 5.9 / 3.9 - 5.3 cm LV Systolic Diameter PLAX 2.2 cm IVS Diastolic Thickness 0.9 cm 0.6 - 1.0 / 0.6 - 0.9 cm LVPW Diastolic Thickness 0.9 cm 0.6 - 1.0 / 0.6 - 0.9 cm LV Relative Wall Thickness 0.6 RV Internal Dim ED PLAX 3.0 cm LVOT Diameter 1.8 cm Aortic Root Diameter 2.9 cm LA Systolic Diameter LX 2.5 cm 3.0 - 4.0 / 2.7 - 3.8 cm M-MODE AV Cusp Separation MM 1.9 cm DOPPLER AV Peak Velocity 103.0 cm/s AV Peak Gradient 4.2 mmHg LVOT Peak Velocity 77.1 cm/s LVOT Peak Gradient 2.4 mmHg AV Area Cont Eq pk 1.9 cm Mitral E Point Velocity 93.8 cm/s Mitral A Point Velocity 60.5 cm/s Mitral E to A Ratio 1.6 LV E' Lateral Velocity 7.0 cm/s Mitral E to LV E' Lateral Ratio 13.4 LV E' Septal Velocity 5.9 cm/s Mitral E to LV E' Septal Ratio 15.8 TR Peak Velocity 251.0 cm/s TR Peak Gradient 25.2 mmHg Right Atrial Pressure 10.0 mmHg Pulmonary Artery Systolic Pressu 35.2 mmHg Right Ventricular Systolic Press 35.2 mmHg PV Peak Velocity 59.2 cm/s PV Peak Gradient 1.4 mmHg FINDINGS LEFT VENTRICLE Normal left ventricular size. Wall thickness is normal. The left ventricular systolic function is normal with an estimated ejection fraction in the range of 55-60%. RIGHT VENTRICLE Normal right ventricular size and systolic function. LEFT ATRIUM The left atrial size is normal. RIGHT ATRIUM The right atrial size is normal. ATRIAL SEPTUM Normal atrial septal thickness without atrial level shunting by limited color doppler interrogation. AORTA Mildly dilated proximal ascending aorta. MITRAL VALVE Trace mitral valve regurgitation. AORTIC VALVE Trileaflet aortic valve. TRICUSPID VALVE There is trace tricuspid valve regurgitation. The estimated pulmonary arterial pressure is 35 mmHg. PULMONARY VALVE No pulmonary valve regurgitation or stenosis. VESSELS The inferior vena cava is normal in size. PERICARDIUM No pericardial effusion. Lazara Carson MD (Electronically Signed) Final Date:07 April 2018 12:32
[2018-04-07 16:01] LABS: Hemoglobin A1c 6.1 % (4.3-6.0)
--- NOTE | 2018-04-07 18:34 | ECG ---
Date Performed: 04/06/2018 Time Performed: 20:53:52 PTAGE: 72 years EKG: Sinus rhythm MODERATE ST DEPRESSION ABNORMAL ECG PREVIOUS TRACING : 04/06/2018 10.01 DOCTOR: Ulises Nuñez Interpretating Date/Time 04/07/2018 18:32:29
--- NOTE | 2018-04-07 18:47 | ECG ---
Date Performed: 04/06/2018 Time Performed: 10:01:49 PTAGE: 72 years EKG: Sinus rhythm WITH SINUS ARRHYTHMIA MINIMAL ST DEPRESSION BORDERLINE ECG INTERPRETATION BASED ON A DEFAULT AGE OF 40 YEARS PREVIOUS TRACING : 10/02/2017 14.21 DOCTOR: Ulises Nuñez Interpretating Date/Time 04/07/2018 18:39:24
== END 2018-04-07 14:24 | disposition home or self-care (01) ==
LOC: NEPE 09:37 → NEDA 09:37 → NEPGCP 17:16
PROVIDERS: ADMIT Family Medicine; ATTEND Family Medicine
DX: Z66 Do not resuscitate; R41.82 Altered mental status, unspecified; M81.0 Age-related osteoporosis without current pathological fracture; I67.1 Cerebral aneurysm, nonruptured; R20.2 Paresthesia of skin; R20.0 Anesthesia of skin; Z90.710 Acquired absence of both cervix and uterus; K44.9 Diaphragmatic hernia without obstruction or gangrene; Z90.49 Acquired absence of other specified parts of digestive tract; Z82.49 Family history of ischemic heart disease and other diseases of the circulatory system; E78.5 Hyperlipidemia, unspecified; Z79.83 Long term (current) use of bisphosphonates; R63.8 Other symptoms and signs concerning food and fluid intake; R07.9 Chest pain, unspecified; Z88.2 Allergy status to sulfonamides; I25.10 Atherosclerotic heart disease of native coronary artery without angina pectoris; Z79.82 Long term (current) use of aspirin